=== PATIENT | female | born 1995 | race African-American/Black ===

== ENCOUNTER 2021-12-17 00:26 | Emergency (ER) | payer MEDICAID ==
[~2021-12-17] VITALS: Ht 154.9 cm; Wt 50.0 kg
[~2021-12-17 00:26] MED LIST: ABIL10; METFORMIN; OLAN15TA3 PO
[2021-12-17 00:38] VITALS: BP 124/82
== END 2021-12-17 07:09 | disposition home or self-care (01) ==
LOC: ER 00:26
DX: T76.21XA Adult sexual abuse, suspected, initial encounter (principal); E11.9 Type 2 diabetes mellitus without complications; Z88.0 Allergy status to penicillin
CPT/HCPCS: 99283